=== PATIENT | female | born 1965 | race Caucasian/White ===

== ENCOUNTER 2019-10-15 19:40 | Emergency (ER) | payer BC ==
--- NOTE | 2019-10-15 19:59 | EDM.PDOC ---
ED HPI GENERAL MEDICAL PROBLEM - General Chief Complaint: General Stated Complaint: BLOOD PRESSURE CHECK Time Seen by Provider: 10/15/19 19:59 Source of Information: Reports: Patient History Limitations: Reports: No Limitations - History of Present Illness INITIAL COMMENTS - FREE TEXT/NARRATIVE: HISTORY AND PHYSICAL: History of present illness: Patient is a 54-year-old female presents to the ED with complaint of elevated blood pressure. Patient states she doesn't normally check her blood pressure but she was feeling "funny" so she checked it any it was 220s/120s. She states after checking it 3 times she came to the ED. She states she was feeling anxious after the third check and on the way to the ED she felt dizzy. She denies chest pain, shortness of breath, headache, visual changes, nausea, vomiting, abdominal pain, diarrhea. She states she was recently seen at heme/ onc for elevated hemoglobin and hematocrit. She was advised to stop smoking and was started on a nicotine patch. She states she has been on the nicotine patch for the past 5-6 weeks. She states she is currently on the 14mg patches. Patient is on losartan 50mg daily and did take this prior to taking her blood pressure this afternoon. Review of systems: As per history of present illness and below otherwise all systems reviewed and negative. Past medical history: As per history of present illness and as reviewed below otherwise noncontributory. Surgical history: As per history of present illness and as reviewed below otherwise noncontributory. Social history: No reported history of drug or alcohol abuse. Family history: As per history of present illness and as reviewed below otherwise noncontributory. Physical exam: General: Patient sitting comfortably in no acute distress and nontoxic appearing HEENT: Atraumatic, normocephalic, pupils reactive, negative for conjunctival pallor or scleral icterus, mucous membranes moist, throat clear, neck supple, nontender, trachea midline. No meningeal signs. Lungs: Clear to auscultation, breath sounds equal bilaterally, chest nontender. Heart: S1S2, regular, negative for clicks, rubs, or overt murmur. Abdomen: Soft, nondistended, nontender. Negative for masses or hepatosplenomegaly. Negative for costovertebral tenderness. No rigidity, rebound , guarding. Pelvis: Stable nontender. Genitourinary: Deferred. Rectal: Deferred. Extremities: Atraumatic, negative for cords or calf pain. Neurovascular unremarkable. Neuro: Awake, alert, oriented. Cranial nerves II through XII unremarkable. Cerebellum unremarkable. Motor and sensory unremarkable throughout. Exam nonfocal. Notes: Potassium is minimally low, patient does take oral potassium daily. Blood pressure improved with 20mg labetalol and patient reports improvement in symptoms. Patient offered admission which she declines. Diagnostics: CBC, CMP, troponin, UA, CXR, EKG Therapeutics: 20mg Labetalol Prescriptions: Metoprolol Impression: Hypertension, hypertensive urgency Plan: Take blood pressure medication as instructed Follow up with primary care provider Return to ED as needed as discussed Definitive disposition and diagnosis as appropriate pending reevaluation and review of above. 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 ED EXAM, GENERAL - Physical Exam Exam: See Below (see dictation) Course - Vital Signs Last Recorded V/S: Last Vital Signs Temp 97.7 F 10/15/19 19:50 Pulse 61 10/15/19 20:54 Resp 18 10/15/19 19:50 BP 176/103 H 10/15/19 20:54 Pulse Ox 97 10/15/19 19:50 - Orders/Labs/Meds Orders: Active Orders 24 hr Category Date Time Status Cardiac Monitoring [RC] . DIRECTED Care 10/15/19 20:00 Active EKG Documentation Completion [RC] STAT Care 10/15/19 20:00 Active Sodium Chloride 0.9% [Saline Flush] Med 10/15/19 20:00 Active 10 ml FLUSH ASDIRECTED PRN Sodium Chloride 0.9% [Saline Flush] Med 10/15/19 20:00 Active 2.5 ml FLUSH ASDIRECTED PRN Saline Lock Insert [OM.PC] Stat Oth 10/15/19 20:00 Ordered Medication Orders Sodium Chloride (Saline Flush) 10 ml FLUSH ASDIRECTED PRN PRN Reason: Keep Vein Open Sodium Chloride (Saline Flush) 2.5 ml FLUSH ASDIRECTED PRN PRN Reason: Keep Vein Open Labs: Laboratory Tests 10/15/19 10/15/19 10/15/19 Range/Units 20:00 20:00 20:00 WBC 10.04 (4.0-11.0) K/uL RBC 5.91 H (4.30-5.90) M/uL Hgb 19.4 H (12.0-16.0) g/dL Hct 54.9 H (36.0-46.0) % MCV 92.9 (80.0-98.0) fL MCH 32.8 H (27.0-32.0) pg MCHC 35.3 (31.0-37.0) g/dL RDW Std Deviation 45.0 (28.0-62.0) fl RDW Coeff of Aneudy 13 (11.0-15.0) % Plt Count 229 (150-400) K/uL MPV 10.20 (7.40-12.00) fL Neut % (Auto) 61.7 (48.0-80.0) % Lymph % (Auto) 24.0 (16.0-40.0) % [place] % (Auto) 11.0 (0.0-15.0) % Eos % (Auto) 2.8 (0.0-7.0) % Baso % (Auto) 0.5 (0.0-1.5) % Neut # (Auto) 6.2 H (1.4-5.7) K/uL Lymph # (Auto) 2.4 (0.6-2.4) K/uL [place] # (Auto) 1.1 H (0.0-0.8) K/uL Eos # (Auto) 0.3 (0.0-0.7) K/uL Baso # (Auto) 0.1 (0.0-0.1) K/uL Nucleated RBC % 0.0 /100WBC Nucleated RBCs # 0 K/uL Sodium 141 (136-145) mmol/L Potassium 3.1 L (3.5-5.1) mmol/L Chloride 100 (98-107) mmol/L Carbon Dioxide 24.7 (21.0-32.0) mmol/L BUN 12 (7.0-18.0) mg/dL Creatinine 0.6 (0.6-1.0) mg/dL Est Cr Clr Drug Dosing 91.48 mL/min Estimated GFR (MDRD) > 60.0 ml/min Glucose 94 (74-106) mg/dL Calcium 9.3 (8.5-10.1) mg/dL Total Bilirubin 0.8 (0.2-1.0) mg/dL AST 28 (15-37) IU/L ALT 39 (14-63) IU/L Alkaline Phosphatase 69 (46-116) U/L Total Protein 8.3 H (6.4-8.2) g/dL Albumin 4.8 (3.4-5.0) g/dL Globulin 3.5 (2.6-4.0) g/dL Albumin/Globulin Ratio 1.4 (0.9-1.6) Urine Color YELLOW Urine Appearance CLEAR Urine pH 7.0 (5.0-8.0) Ur Specific [place] 1.010 (1.001-1.035) Urine Protein TRACE H (NEGATIVE) mg/dL Urine Glucose (UA) NEGATIVE (NEGATIVE) mg/dL Urine Ketones NEGATIVE (NEGATIVE) mg/dL Urine Occult Blood SMALL H (NEGATIVE) Urine Nitrite NEGATIVE (NEGATIVE) Urine Bilirubin NEGATIVE (NEGATIVE) Urine Urobilinogen 0.2 (<2.0) EU/dL Ur Leukocyte Esterase NEGATIVE (NEGATIVE) Urine RBC 0-1 (0-2/HPF) Urine WBC 0-1 (0-5/HPF) Ur Epithelial Cells RARE (NONE-FEW) Amorphous Sediment RARE (NEGATIVE) Urine Bacteria RARE (NEGATIVE) Urine Mucus RARE (NONE-MOD) Meds: Medications Generic Name Dose Route Start Last Admin Trade Name Freq PRN Reason Stop Dose Admin Sodium Chloride 10 ml 01/28/20 20:00 Saline Flush FLUSH ASDIRECTED PRN Keep Vein Open Sodium Chloride 2.5 ml 10/15/19 20:00 Saline Flush FLUSH ASDIRECTED PRN Keep Vein Open Discontinued Medications Generic Name Dose Route Start Last Admin Trade Name Vaughn PRN Reason Stop Dose Admin Labetalol HCl 20 mg 10/15/19 20:17 10/15/19 20:30 Normodyne IVPUSH 10/15/19 20:18 20 mg ONETIME ONE Administration Protocol Departure - Departure Time of Disposition: 21:30 Disposition: Home, Self-Care 01 Condition: Good Clinical Impression: Hypertension - Discharge Information Prescriptions: Metoprolol Tartrate 25 mg PO DAILY #10 tablet Referrals: PCP,None [Primary Care Provider] - Forms: ED Department Discharge Additional Instructions: The following information is given to patients seen in the emergency department who are being discharged to home. This information is to outline your options for follow-up care. We provide all patients seen in our emergency department with a follow-up referral. The need for follow-up, as well as the timing and circumstances, are variable depending upon the specifics of your emergency department visit. If you don't have a primary care physician on staff, we will provide you with a referral. We always advise you to contact your personal physician following an emergency department visit to inform them of the circumstance of the visit and for follow-up with them and/or the need for any referrals to a consulting specialist. The emergency department will also refer you to a specialist when appropriate. This referral assures that you have the opportunity for follow-up care with a specialist. All of these measure are taken in an effort to provide you with optimal care, which includes your follow-up. Under all circumstances we always encourage you to contact your private physician who remains a resource for coordinating your care. When calling for follow-up care, please make the office aware that this follow-up is from your recent emergency room visit. If for any reason you are refused follow-up, please contact the [facility] Emergency Department at and asked to speak to the emergency department charge nurse. [facility] [address] [place] [id number] [facility] [address] [place] [address] Take blood pressure medication as instructed Follow up with primary care provider Return to ED as needed as discussed Sepsis Event Note - Evaluation Sepsis Screening Result: No Definite Risk - Focused Exam Vital Signs: Vital Signs Temp Pulse Resp BP Pulse Ox 10/15/19 20:54 61 176/103 H 10/15/19 20:40 64 164/99 H 10/15/19 19:50 97.7 F 88 18 219/126 H 97 Date Exam was Performed: 10/15/19 Time Exam was Performed: 21:29 - My Orders Last 24 Hours: My Active Orders 10/15/19 20:00 Cardiac Monitoring [RC] . DIRECTED EKG Documentation Completion [RC] STAT Sodium Chloride 0.9% [Saline Flush] 10 ml FLUSH ASDIRECTED PRN Sodium Chloride 0.9% [Saline Flush] 2.5 ml FLUSH ASDIRECTED PRN Saline Lock Insert [OM.PC] Stat - Assessment/Plan Last 24 Hours: My Active Orders 10/15/19 20:00 Cardiac Monitoring [RC] . DIRECTED EKG Documentation Completion [RC] STAT Sodium Chloride 0.9% [Saline Flush] 10 ml FLUSH ASDIRECTED PRN Sodium Chloride 0.9% [Saline Flush] 2.5 ml FLUSH ASDIRECTED PRN Saline Lock Insert [OM.PC] Stat
[2019-10-15] MEDS ORDERED: Sodium Chloride 0.9% 2.5 ML Syringe FLUSH PRN (20:00)
[2019-10-15] MEDS ORDERED: Sodium Chloride 0.9% 10 ML Syringe FLUSH PRN (20:00)
[2019-10-15] MEDS ORDERED: Labetalol 100 MG/20 ML MDV IVPUSH ONE (20:17)
[2019-10-15 20:43] LABS: BLOOD UREA NITROGEN,BUN 12 mg/dL (7.0-18.0); CARBON DIOXIDE,CO2 24.7 mmol/L (21.0-32.0); CHLORIDE,CL 100 mmol/L (98-107); GLUCOSE RANDOM 94 mg/dL (74-106); POTASSIUM,K 3.1 mmol/L (3.5-5.1); SODIUM,NA 141 mmol/L (136-145)
--- NOTE | 2019-10-15 21:28 | CR ---
Indication: High blood pressure. Technique: A single AP portable view of the chest. Comparison: None Findings: The heart is normal in size. The lungs are clear. No infiltrate, pleural effusion, or pneumothorax is identified. Impression: No acute cardiopulmonary process Dictated by Isabel Nunes MD @ Oct 15 2019 9:18PM Signed by Dr. Isabel Nunes @ Oct 15 2019 9:25PM
[2019-10-16 03:31] VITALS: BP 171/105; PULSE 68
== END 2019-10-15 21:40 | disposition home or self-care (01) ==
LOC: MW.ED 19:40
DX: I10 Essential (primary) hypertension (principal); E78.00 Pure hypercholesterolemia, unspecified; Z79.899 Other long term (current) drug therapy
CPT/HCPCS: 71045; 71045-26; 80053; 81001; 85025; 93005; 96374; 99283; 99284-25

== ENCOUNTER 2019-10-17 16:40 | Emergency (ER) | payer BC ==
[2019-10-17] MEDS ORDERED: cloNIDine 0.1 MG Tab PO ONE (16:59)
--- NOTE | 2019-10-17 17:09 | EDM.PDOC ---
ED HPI GENERAL MEDICAL PROBLEM - General Chief Complaint: General Stated Complaint: high blood pressure Time Seen by Provider: 10/17/19 16:51 Source of Information: Reports: Patient History Limitations: Reports: No Limitations - History of Present Illness INITIAL COMMENTS - FREE TEXT/NARRATIVE: HISTORY AND PHYSICAL: History of present illness: Patient is a 54-year-old female who presents to the emergency room with concerns of elevated blood pressure. Patient was seen in our ER on 10/15/2019 with concerns of elevated blood pressure, stating she had been checking her blood pressure routinely and having readings of 200s/100s over the past 2 days. During her ER visit she had basic labs done which were well enough for her to be discharged and she wasn't given script for Metoprolol. She has been taking losartan and Nicotine Patches (recommended by Brittany - seeing her for elevated Hgb/Hct count). Patient didn't fill her prescription; stating she called Dr Hendrickson, who didn't want her to take/fill the Metoprolol, but rather encouraged her to stop the Nicotine Patches (last patch was 10/15) . She noticed her blood pressure still is elevated and she still feels "strange". Patient denies any fever, chills, headache, change in vision, syncope or near syncope. Denies any chest pain, back pain, shortness of breath or cough. Denies any abdominal pain, nausea, vomiting, diarrhea, constipation or dysuria. Has not noted any blood in urine or stool. Patient has been eating and drinking appropriately. Review of systems: As per history of present illness and below otherwise all systems reviewed and negative. Past medical history: As per history of present illness and as reviewed below otherwise noncontributory. Surgical history: As per history of present illness and as reviewed below otherwise noncontributory. Social history: See social history for further information Family history: As per history of present illness and as reviewed below otherwise noncontributory. Physical exam: General: Well-developed and well-nourished 54-year-old female. Alert and oriented. Nontoxic-appearing and in no acute distress. HEENT: Atraumatic, normocephalic, pupils equal and reactive bilaterally, negative for conjunctival pallor or scleral icterus, mucous membranes moist, TMs normal bilaterally, throat clear, neck supple, nontender, trachea midline. No drooling or trismus noted. No meningeal signs. No hot potato voice noted. Lungs: Clear to auscultation, breath sounds equal bilaterally, chest nontender. Heart: S1S2, regular rate and rhythm without overt murmur Abdomen: Soft, nondistended, nontender. Negative for masses or hepatosplenomegaly. Negative for costovertebral tenderness. Pelvis: Stable nontender. Skin: Intact, warm, dry. No lesions or rashes noted. Extremities: Atraumatic, moves all extremities per self without difficulty or deficits, negative for cords or calf pain. Neurovascular unremarkable. Neuro: Awake, alert, oriented. Cranial nerves II through XII unremarkable. Cerebellum unremarkable. Motor and sensory unremarkable throughout. Exam nonfocal. Notes: EKG shows normal sinus rhythm; no acute findings. Reviewed by myself and Nisa. Patient states she doesn't want to add any medication until she can talk with Dr Hendrickson, her PCP, as he is already aware of her elevated BP readings. Believes it may be related to her Nicotine patch, as this was just started in the last 2 weeks. We discuss possible risks of untreated HTN, she voices understanding. She will call Madhavi in the morning. Supportive care measures were reviewed and discussed. Voices understanding and is agreeable to plan of care. Denies any further questions or concerns at this time. Diagnostics: EKG Therapeutics: Clonidine Prescription: None Impression: Medication Noncompliance Unmanaged HTN Plan: 1. You need to call Dr Hendrickson tomorrow and be re-evaluated/management REMA- call first thing in the morning to be seen. 2. Return to the ED as needed as discussed. Definitive disposition and diagnosis as appropriate pending reevaluation and review of above. - Related Data Allergies Allergy/AdvReac Type Severity Reaction Status Date / Time No Known Allergies Allergy Verified 10/17/19 16:52 Home Meds: Home Meds Potassium Chloride 20 meq PO DAILY 06/27/17 [History] atorvaSTATin Calcium [Atorvastatin Calcium] 20 mg PO DAILY 06/27/17 [History] Losartan [Cozaar] 50 mg PO BEDTIME 10/15/19 [History] Past Medical History HEENT History: Reports: Other (See Below) Other HEENT History: wears glasses Cardiovascular History: Reports: High Cholesterol, Hypertension Genitourinary History: Reports: None [employer] History: Reports: 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 History: Reports: None - Infectious Disease History Infectious Disease History: Reports: Chicken Pox, Measles - Past Surgical History Head Surgeries/Procedures: Reports: None Female Surgical History: Reports: Breast Biopsy, Section 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 Surgical History: Reports: Carpal Tunnel Social & Family History - Family History Family Medical History: Noncontributory - Tobacco Use Smoking Status *Q: Former Smoker Used Tobacco, but Quit: Yes Month/Year Tobacco Last Used: 10/07 - Caffeine Use Caffeine Use: Reports: None ED ROS GENERAL - Review of Systems Review Of Systems: Comprehensive ROS is negative, except as noted in HPI. ED EXAM, GENERAL - Physical Exam Exam: See Below (See dictation) Course - Vital Signs Last Recorded V/S: Last Vital Signs Temp 97.2 F 10/17/19 16:49 Pulse 60 10/17/19 16:49 Resp 16 10/17/19 16:49 BP 188/107 H 10/17/19 17:09 Pulse Ox 96 10/17/19 16:49 - Orders/Labs/Meds Orders: Active Orders 24 hr Category Date Time Status EKG Documentation Completion [RC] STAT Care 10/17/19 16:59 Active Meds: Medications Discontinued Medications Generic Name Dose Route Start Last Admin Trade Name Freq PRN Reason Stop Dose Admin Clonidine HCl 0.1 mg 10/17/19 16:59 10/17/19 17:09 Catapres PO 10/17/19 17:00 0.1 mg ONETIME ONE Administration Departure - Departure Time of Disposition: 17:44 Disposition: Home, Self-Care 01 Clinical Impression: Noncompliance with medication regimen Hypertension Qualifiers: Hypertension type: unspecified Qualified Code(s): I10 - Essential (primary) hypertension - Discharge Information Instructions: Managing Your Hypertension Referrals: Dez Zaldivar MD [Primary Care Provider] - Forms: ED Department Discharge Additional Instructions: The following information is given to patients seen in the emergency department who are being discharged to home. This information is to outline your options for follow-up care. We provide all patients seen in our emergency department with a follow-up referral. The need for follow-up, as well as the timing and circumstances, are variable depending upon the specifics of your emergency department visit. If you don't have a primary care physician on staff, we will provide you with a referral. We always advise you to contact your personal physician following an emergency department visit to inform them of the circumstance of the visit and for follow-up with them and/or the need for any referrals to a consulting specialist. The emergency department will also refer you to a specialist when appropriate. This referral assures that you have the opportunity for follow-up care with a specialist. All of these measure are taken in an effort to provide you with optimal care, which includes your follow-up. Under all circumstances we always encourage you to contact your private physician who remains a resource for coordinating your care. When calling for follow-up care, please make the office aware that this follow-up is from your recent emergency room visit. If for any reason you are refused follow-up, please contact the [facility] Emergency Department at and asked to speak to the emergency department charge nurse. [facility] [address] [place] [address] [place] [address] 1. You need to call Dr Hendrickson tomorrow and be re-evaluated/management REMA- call first thing in the morning to be seen. 2. Return to the ED as needed as discussed. Sepsis Event Note - Evaluation Sepsis Screening Result: No Definite Risk - Focused Exam Vital Signs: Vital Signs Temp Pulse Resp BP BP Pulse Ox 10/17/19 17:09 188/107 H 10/17/19 16:49 97.2 F 60 16 219/113 H 96 Date Exam was Performed: 10/17/19 Time Exam was Performed: 17:42 - My Orders Last 24 Hours: My Active Orders 10/17/19 16:59 EKG Documentation Completion [RC] STAT - Assessment/Plan Last 24 Hours: My Active Orders 10/17/19 16:59 EKG Documentation Completion [RC] STAT
[2019-10-17 17:45] VITALS: BP 180/105; PULSE 54
== END 2019-10-17 17:58 | disposition home or self-care (01) ==
LOC: MW.ED 16:40
DX: I10 Essential (primary) hypertension (principal); Z91.14 Patient's other noncompliance with medication regimen; E78.00 Pure hypercholesterolemia, unspecified; Z79.899 Other long term (current) drug therapy; Z87.891 Personal history of nicotine dependence
CPT/HCPCS: 93005; 99283; A9270

== ENCOUNTER 2019-11-03 12:59 | Observation (INO) | payer BC ==
--- NOTE | 2019-11-03 14:44 | EDM.PDOC ---
ED HPI GENERAL MEDICAL PROBLEM - General Chief Complaint: Cardiovascular Problem Stated Complaint: HIGH BP Time Seen by Provider: 11/03/19 14:20 Source of Information: Reports: Patient - History of Present Illness INITIAL COMMENTS - FREE TEXT/NARRATIVE: Patient presents complaining of hypertension. She says she was diagnosed with high blood pressure 3 years ago. Currently she says she takes losartan 50 mg once a day at bedtime and metoprolol 50 mg once a day at bedtime. Compliant with her medications. States that she has been difficult to control. She states that her primary care doctor added the metoprolol on 10/20/2019, and increase the dose a few days later, but her pressure readings are still in the 200s. Mention to the nurse that she had a headache, but when I asked her about it, she said it was "2 out of 10 and really not that bad close quotes. I offered her Tylenol and she said she did not want anything for the headache. She said she is more anxious than in pain, and she says she is feeling anxiety because she is taking her medicine and does not understand why her pressure will not go down. She denies a history of thyroid disease and denies heat or cold intolerance. No recent weight changes. She denies speech slurring, visual changes, chest pain, shortness of breath, or other symptoms. 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: 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 History: Reports: None - Infectious Disease History Infectious Disease History: Reports: Measles - Past Surgical History Head Surgeries/Procedures: Reports: None Female Surgical History: Reports: Breast Biopsy, Section 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 Surgical History: Reports: Carpal Tunnel Social & Family History - Family History Family Medical History: Noncontributory - Tobacco Use Smoking Status *Q: Former Smoker Used Tobacco, but Quit: Yes Month/Year Tobacco Last Used: 2019 - Caffeine Use Caffeine Use: Reports: None - Recreational Drug Use Recreational Drug Use: No ED ROS GENERAL - Review of Systems Review Of Systems: See Below Constitutional: Denies: Fever, Weakness, Fatigue HEENT: Denies: Eye Pain Respiratory: Denies: Shortness of Breath, Cough Cardiovascular: Denies: Chest Pain, Palpitations GI/Abdominal: Denies: Abdominal Pain Neurological: Reports: Headache. Denies: Confusion, Dizziness, Numbness, Seizure, Tingling, Trouble Speaking, Change in Speech ED EXAM, GENERAL - Physical Exam Exam: See Below Free Text/Narrative:: General: alert, well appearing, no acute distress HEENT: Atraumatic, normocephalic, pupils reactive, negative for conjunctival pallor or scleral icterus, mucous membranes moist, throat clear, handling oral secretions well. Neck: supple, nontender, trachea midline. Lungs: Clear to auscultation, breath sounds equal bilaterally, chest nontender. Heart: S1S2, regular, negative for clicks, rubs, or JVD. Abdomen: Soft, nondistended, nontender. Negative for masses or hepatosplenomegaly. Skin: warm, dry, good turgor. 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: soft compartments. Extremities: Atraumatic, negative for cords or calf pain. Neurovascular unremarkable. Neuro: Awake, alert, oriented. Cranial nerves II through XII unremarkable. Cerebellum unremarkable. Motor and sensory unremarkable throughout. Exam nonfocal. Course - Vital Signs Text/Narrative:: Head CT: No bleed, mass, shift EK bpm normal sinus rhythm LAD normal CO, QRS, QT intervals; no acute ST changes CBC: Hemoconcentration; otherwise unremarkable CMP: BUN and creatinine are normal; studies unremarkable Troponin: Negative 4:39pm patient's systolic pressure is responded to the nicardipine drip, ranging from about 170-190. However, her diastolic pressure seems to hover in 120. I really do not feel comfortable sending her out with that high with diastolic pressure. Her only symptom thus far is been a mild headache, but I would be concerned about her possibly worsening. She may need a third agent. Anyway, she is not well controlled with the two bp agents she is taking, and the nicardipine drip has helped some, but not quite enough. I discussed the case with the hospitalist, Dr. Menendez, who is agreed to admit her to observation status to continue lowering her pressure. Patient has been informed and is amenable to an overnight admission. Last Recorded V/S: Last Vital Signs Temp 97.7 F 11/03/19 13:50 Pulse 96 11/03/19 17:48 Resp 18 11/03/19 17:48 BP 175/100 H 11/03/19 17:48 Pulse Ox 97 11/03/19 17:48 - Orders/Labs/Meds Orders: Medication Orders Acetaminophen (Tylenol) 650 mg PO Q4H PRN PRN Reason: Pain (Mild 1-3)/fever Enoxaparin Sodium (Lovenox) 40 mg SUBCUT Q24H LENKA Last Admin: 11/03/19 17:42 Dose: 40 mg Sodium Chloride (Normal Saline) 1,000 mls @ 150 mls/hr IV ASDIRECTED LENKA Stop: 11/03/19 23:54 Ibuprofen (Motrin) 800 mg PO Q6H PRN PRN Reason: Pain (mild 1-3) Labetalol HCl (Normodyne) 10 mg IVPUSH Q4H PRN PRN Reason: Hypertension Lorazepam (Ativan) 0 mg IVPUSH Q4H PRN; Protocol PRN Reason: Withdrawal Symptoms Losartan Potassium (Cozaar) 50 mg PO BEDTIME LENKA Multivit/Ca Carb/B Cmplx/FA/Prenat (Renal Caps Softgel) 1 cap PO DAILY LENKA Ondansetron HCl (Zofran Odt) 4 mg PO Q4H PRN PRN Reason: nausea, able to take PO Ondansetron HCl (Zofran) 4 mg IVPUSH Q4H PRN PRN Reason: Nausea Labs: Laboratory Tests 11/03/19 11/03/19 11/03/19 Range/Units 13:57 13:57 13:57 WBC 8.59 (4.0-11.0) K/uL RBC 5.75 (4.30-5.90) M/uL Hgb 18.8 H (12.0-16.0) g/dL Hct 52.6 H (36.0-46.0) % MCV 91.5 (80.0-98.0) fL MCH 32.7 H (27.0-32.0) pg MCHC 35.7 (31.0-37.0) g/dL RDW Std Deviation 43.4 (28.0-62.0) fl RDW Coeff of Aneudy 13 (11.0-15.0) % Plt Count 257 (150-400) K/uL MPV 10.90 (7.40-12.00) fL Neut % (Auto) 64.2 (48.0-80.0) % Lymph % (Auto) 22.2 (16.0-40.0) % [place] % (Auto) 11.1 (0.0-15.0) % Eos % (Auto) 2.0 (0.0-7.0) % Baso % (Auto) 0.5 (0.0-1.5) % Neut # (Auto) 5.5 (1.4-5.7) K/uL Lymph # (Auto) 1.9 (0.6-2.4) K/uL [place] # (Auto) 1.0 H (0.0-0.8) K/uL Eos # (Auto) 0.2 (0.0-0.7) K/uL Baso # (Auto) 0.0 (0.0-0.1) K/uL Nucleated RBC % 0.0 /100WBC Nucleated RBCs # 0 K/uL Sodium 142 (136-145) mmol/L Potassium 3.4 L (3.5-5.1) mmol/L Chloride 105 (98-107) mmol/L Carbon Dioxide 26.2 (21.0-32.0) mmol/L BUN 17 (7.0-18.0) mg/dL Creatinine 0.7 (0.6-1.0) mg/dL Est Cr Clr Drug Dosing 81.71 mL/min Estimated GFR (MDRD) > 60.0 ml/min Glucose 102 (74-106) mg/dL Calcium 9.2 (8.5-10.1) mg/dL Magnesium (1.8-2.4) mg/dL Total Bilirubin 0.5 (0.2-1.0) mg/dL AST 22 (15-37) IU/L ALT 28 (14-63) IU/L Alkaline Phosphatase 67 (46-116) U/L Troponin I < 0.050 (0.000-0.056) ng/mL B-Natriuretic Peptide 149 H (<100) PG/ML Total Protein 7.7 (6.4-8.2) g/dL Albumin 4.3 (3.4-5.0) g/dL Globulin 3.4 (2.6-4.0) g/dL Albumin/Globulin Ratio 1.3 (0.9-1.6) Ethyl Alcohol mg/dL 11/03/19 11/03/19 Range/Units 13:57 13:57 WBC (4.0-11.0) K/uL RBC (4.30-5.90) M/uL Hgb (12.0-16.0) g/dL Hct (36.0-46.0) % MCV (80.0-98.0) fL MCH (27.0-32.0) pg MCHC (31.0-37.0) g/dL RDW Std Deviation (28.0-62.0) fl RDW Coeff of Aneudy (11.0-15.0) % Plt Count (150-400) K/uL MPV (7.40-12.00) fL Neut % (Auto) (48.0-80.0) % Lymph % (Auto) (16.0-40.0) % [place] % (Auto) (0.0-15.0) % Eos % (Auto) (0.0-7.0) % Baso % (Auto) (0.0-1.5) % Neut # (Auto) (1.4-5.7) K/uL Lymph # (Auto) (0.6-2.4) K/uL [place] # (Auto) (0.0-0.8) K/uL Eos # (Auto) (0.0-0.7) K/uL Baso # (Auto) (0.0-0.1) K/uL Nucleated RBC % /100WBC Nucleated RBCs # K/uL Sodium (136-145) mmol/L Potassium (3.5-5.1) mmol/L Chloride (98-107) mmol/L Carbon Dioxide (21.0-32.0) mmol/L BUN (7.0-18.0) mg/dL Creatinine (0.6-1.0) mg/dL Est Cr Clr Drug Dosing mL/min Estimated GFR (MDRD) ml/min Glucose (74-106) mg/dL Calcium (8.5-10.1) mg/dL Magnesium 1.8 (1.8-2.4) mg/dL Total Bilirubin (0.2-1.0) mg/dL AST (15-37) IU/L ALT (14-63) IU/L Alkaline Phosphatase (46-116) U/L Troponin I (0.000-0.056) ng/mL B-Natriuretic Peptide (<100) PG/ML Total Protein (6.4-8.2) g/dL Albumin (3.4-5.0) g/dL Globulin (2.6-4.0) g/dL Albumin/Globulin Ratio (0.9-1.6) Ethyl Alcohol <3 mg/dL Meds: Medications Generic Name Dose Route Start Last Admin Trade Name Freq PRN Reason Stop Dose Admin Acetaminophen 650 mg 11/03/19 17:08 Tylenol PO Q4H PRN Pain (Mild 1-3)/fever Enoxaparin Sodium 40 mg 11/03/19 17:15 11/03/19 17:42 Lovenox SUBCUT 40 mg Q24H LENKA Administration Sodium Chloride 1,000 mls @ 150 mls/hr 11/03/19 17:15 Normal Saline IV 11/03/19 23:54 ASDIRECTED [facility] Ibuprofen 800 mg 11/03/19 17:08 Motrin PO Q6H PRN Pain (mild 1-3) Labetalol HCl 10 mg 11/03/19 17:34 Normodyne IVPUSH Q4H PRN Hypertension Lorazepam 0 mg 11/03/19 17:11 Ativan IVPUSH Q4H PRN Withdrawal Symptoms Protocol Losartan Potassium 50 mg 11/03/19 21:00 Cozaar PO BEDTIME [facility] Multivit/Ca Carb/B Cmplx/FA/Prenat 1 cap 11/03/19 17:15 Renal Caps Softgel PO DAILY [facility] Ondansetron HCl 4 mg 11/03/19 17:08 Zofran Odt PO Q4H PRN nausea, able to take PO Ondansetron HCl 4 mg 11/03/19 17:08 Zofran IVPUSH Q4H PRN Nausea Discontinued Medications Generic Name Dose Route Start Last Admin Trade Name Freq PRN Reason Stop Dose Admin Acetaminophen 500 mg 11/03/19 15:12 11/03/19 15:30 Tylenol Extra Strength PO 11/03/19 15:13 Not Given ONETIME ONE Nicardipine HCl 20 mg in 200 mls @ 20 mls/hr 11/03/19 14:45 11/03/19 16:00 Cardene 20 Mg In Ns 200 Ml IV 4.5 mg/hr TITRATE LENKA 45 mls/hr Titration Protocol 2 MG/HR Lorazepam 1 mg 11/03/19 17:10 11/03/19 17:42 Ativan IVPUSH 11/03/19 17:11 1 mg ONETIME ONE Administration Metoprolol Tartrate 50 mg 11/03/19 17:33 Lopressor PO 11/03/19 17:34 NOW STA Potassium Chloride 40 meq 11/03/19 17:16 11/03/19 17:42 Klor-Con M20 PO 11/03/19 17:17 40 meq ONETIME ONE Administration Departure - Departure Time of Disposition: 16:43 Disposition: Refer to Observation Condition: Good Clinical Impression: Hypertension Qualifiers: Hypertension type: unspecified Qualified Code(s): I10 - Essential (primary) hypertension Sepsis Event Note - Evaluation Sepsis Screening Result: No Definite Risk - Focused Exam Vital Signs: Vital Signs Temp Pulse Resp BP Pulse Ox 11/03/19 13:50 97.7 F 62 17 210/115 H 95 Date Exam was Performed: 11/03/19 Time Exam was Performed: 17:49
[2019-11-03 14:45] LABS: BLOOD UREA NITROGEN,BUN 17 mg/dL (7.0-18.0); CARBON DIOXIDE,CO2 26.2 mmol/L (21.0-32.0); CHLORIDE,CL 105 mmol/L (98-107); GLUCOSE RANDOM 102 mg/dL (74-106); POTASSIUM,K 3.4 mmol/L (3.5-5.1); SODIUM,NA 142 mmol/L (136-145)
[2019-11-03] MEDS ORDERED: niCARdipine/Normal Saline 20 MG/200 ML BAG IV SCH (14:45)
[2019-11-03] MEDS ORDERED: Acetaminophen 500 MG Tab PO ONE (15:12)
--- NOTE | 2019-11-03 15:15 | CR ---
Chest: Portable view of the chest was obtained. Comparison: Prior chest x-ray of 10/15/19. Heart size and mediastinum are within normal limits for portable technique. Lungs are clear with no acute parenchymal change. Bony structures are grossly intact. Impression: 1. Nothing acute is appreciated on portable chest x-ray. Diagnostic code #1 This report was dictated in [place] Standard Time
--- NOTE | 2019-11-03 15:44 | CT ---
Head CT Technique: Multiple axial sections through the brain were obtained. Intravenous contrast was not utilized. Comparison: No prior intracranial imaging is available. Findings: Ventricles along with basal cisterns and sulci over the convexities are within normal limits for the patient's age. No abnormal parenchymal densities are seen. No evidence of intracranial hemorrhage. No midline shift or mass-effect is seen. Visualized paranasal sinuses show nothing acute. Mastoid sinuses also show nothing acute. No acute calvarial abnormality is identified. Impression: 1. Nothing acute is appreciated on noncontrast head CT exam. Diagnostic code #1
[2019-11-03] MEDS ORDERED: Acetaminophen 325 MG Tab PO PRN (17:08)
[2019-11-03] MEDS ORDERED: Ibuprofen 800 MG Tab PO PRN (17:08)
[2019-11-03] MEDS ORDERED: Ondansetron 4 MG Tab.DIS PO PRN (17:08)
[2019-11-03] MEDS ORDERED: Ondansetron 4 MG/2 ML SDV IVPUSH PRN (17:08)
[2019-11-03] MEDS ORDERED: LORazepam 2 MG/ML SDV IVPUSH ONE (17:10)
[2019-11-03] MEDS ORDERED: LORazepam 2 MG/ML SDV IVPUSH PRN (17:11)
[2019-11-03] MEDS ORDERED: Sodium Chloride 0.9% 1,000 ML IV SCH (17:15)
[2019-11-03] MEDS ORDERED: Potassium Chloride 20 MEQ Tab.ER PO ONE (17:16)
[2019-11-03] MEDS ORDERED: Metoprolol Tartrate 50 MG Tab PO STA (17:33)
[2019-11-03] MEDS ORDERED: Labetalol 100 MG/20 ML MDV IVPUSH PRN (17:34)
--- NOTE | 2019-11-03 17:38 | PCM.HP.2 ---
H&P History of Present Illness - General Date of Service: 11/03/19 Admit Problem/Dx: Admission Diagnosis/Problem Admission Diagnosis/Problem Hypertension - History of Present Illness Initial Comments - Free Text/Narative: 54 y/o female with history of alcohol abuse and hypertension who presented to the ER after she felt some palpitations while she was at the grocery store. States that she has been taking losartan and metoprolol. Has been checking her BP at home and it has been ranging in the 170's/90's. Denies any headaches, change in vision, vomiting, chest pain, dyspnea, abdominal pain, dysuria, diarrhea. She does endorse mild swelling in her lower extremities. Denies any family history of heart disease. She quit smoking about 3 months ago. States that she noticed her BP go up after quitting smoking. Denies any illicit drug use. She does endorse daily drinking about 3-4 drinks of hard liquor. Denies any history of withdrawal seizures. - Related Data Allergies/Adverse Reactions: Allergies Allergy/AdvReac Type Severity Reaction Status Date / Time No Known Allergies Allergy Verified 11/03/19 17:38 Home Medications: Home Meds Potassium Chloride 20 meq PO BEDTIME 06/27/17 [History] atorvaSTATin Calcium [Atorvastatin Calcium] 20 mg PO BEDTIME 06/27/17 [History] Losartan [Cozaar] 50 mg PO BEDTIME 10/15/19 [History] Metoprolol Tartrate 50 mg PO BEDTIME 11/03/19 [History] Past Medical History HEENT History: Reports: Other (See Below) Other HEENT History: wears glasses Cardiovascular History: Reports: High Cholesterol, Hypertension Genitourinary History: Reports: None 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: 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 History: Reports: None - Infectious Disease History Infectious Disease History: Reports: Measles - Past Surgical History Head Surgeries/Procedures: Reports: None Female Surgical History: Reports: Breast Biopsy, Section 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 Surgical History: Reports: Carpal Tunnel Social & Family History - Family History Family Medical History: Noncontributory - Tobacco Use Smoking Status *Q: Former Smoker Used Tobacco, but Quit: Yes Month/Year Tobacco Last Used: 08/2019 - Caffeine Use Caffeine Use: Reports: Coffee - Recreational Drug Use Recreational Drug Use: No H&P Review of Systems - Review of Systems: Review Of Systems: Comprehensive ROS is negative, except as noted in HPI. Exam - Exam Exam: See Below - Vital Signs Vital Signs: Last Vital Signs Temp 36.5 C 11/03/19 13:50 Pulse 102 H 11/03/19 17:06 Resp 16 11/03/19 17:06 BP 169/112 H 11/03/19 17:06 Pulse Ox 100 11/03/19 17:06 Weight: 66.134 kg - Exam General: Alert, Oriented, Cooperative HEENT: Pupils Equal, Pupils Reactive Lungs: Clear to Auscultation, Normal Respiratory Effort. No: Crackles, Wheezing Cardiovascular: Regular Rhythm, Tachycardia GI/Abdominal Exam: Normal Bowel Sounds, Soft, Non-Tender, No Distention Extremities: Normal Inspection, Other (mild edema in feet) Skin: Warm, Moist Neurological: Cranial Nerves Intact Neuro Extensive - Mental Status: Alert, Oriented x3 - Patient Data Lab Results Last 24 hrs: Laboratory Results - last 24 hr 11/03/19 11/03/19 11/03/19 Range/Units 13:57 13:57 13:57 WBC 8.59 (4.0-11.0) K/uL RBC 5.75 (4.30-5.90) M/uL Hgb 18.8 H (12.0-16.0) g/dL Hct 52.6 H (36.0-46.0) % MCV 91.5 (80.0-98.0) fL MCH 32.7 H (27.0-32.0) pg MCHC 35.7 (31.0-37.0) g/dL RDW Std Deviation 43.4 (28.0-62.0) fl RDW Coeff of Aneudy 13 (11.0-15.0) % Plt Count 257 (150-400) K/uL MPV 10.90 (7.40-12.00) fL Neut % (Auto) 64.2 (48.0-80.0) % Lymph % (Auto) 22.2 (16.0-40.0) % [place] % (Auto) 11.1 (0.0-15.0) % Eos % (Auto) 2.0 (0.0-7.0) % Baso % (Auto) 0.5 (0.0-1.5) % Neut # (Auto) 5.5 (1.4-5.7) K/uL Lymph # (Auto) 1.9 (0.6-2.4) K/uL [place] # (Auto) 1.0 H (0.0-0.8) K/uL Eos # (Auto) 0.2 (0.0-0.7) K/uL Baso # (Auto) 0.0 (0.0-0.1) K/uL Nucleated RBC % 0.0 /100WBC Nucleated RBCs # 0 K/uL Sodium 142 (136-145) mmol/L Potassium 3.4 L (3.5-5.1) mmol/L Chloride 105 (98-107) mmol/L Carbon Dioxide 26.2 (21.0-32.0) mmol/L BUN 17 (7.0-18.0) mg/dL Creatinine 0.7 (0.6-1.0) mg/dL Est Cr Clr Drug Dosing 81.71 mL/min Estimated GFR (MDRD) > 60.0 ml/min Glucose 102 (74-106) mg/dL Calcium 9.2 (8.5-10.1) mg/dL Magnesium (1.8-2.4) mg/dL Total Bilirubin 0.5 (0.2-1.0) mg/dL AST 22 (15-37) IU/L ALT 28 (14-63) IU/L Alkaline Phosphatase 67 (46-116) U/L Troponin I < 0.050 (0.000-0.056) ng/mL B-Natriuretic Peptide 149 H (<100) PG/ML Total Protein 7.7 (6.4-8.2) g/dL Albumin 4.3 (3.4-5.0) g/dL Globulin 3.4 (2.6-4.0) g/dL Albumin/Globulin Ratio 1.3 (0.9-1.6) Ethyl Alcohol mg/dL 11/03/19 11/03/19 Range/Units 13:57 13:57 WBC (4.0-11.0) K/uL RBC (4.30-5.90) M/uL Hgb (12.0-16.0) g/dL Hct (36.0-46.0) % MCV (80.0-98.0) fL MCH (27.0-32.0) pg MCHC (31.0-37.0) g/dL RDW Std Deviation (28.0-62.0) fl RDW Coeff of Aneudy (11.0-15.0) % Plt Count (150-400) K/uL MPV (7.40-12.00) fL Neut % (Auto) (48.0-80.0) % Lymph % (Auto) (16.0-40.0) % [place] % (Auto) (0.0-15.0) % Eos % (Auto) (0.0-7.0) % Baso % (Auto) (0.0-1.5) % Neut # (Auto) (1.4-5.7) K/uL Lymph # (Auto) (0.6-2.4) K/uL [place] # (Auto) (0.0-0.8) K/uL Eos # (Auto) (0.0-0.7) K/uL Baso # (Auto) (0.0-0.1) K/uL Nucleated RBC % /100WBC Nucleated RBCs # K/uL Sodium (136-145) mmol/L Potassium (3.5-5.1) mmol/L Chloride (98-107) mmol/L Carbon Dioxide (21.0-32.0) mmol/L BUN (7.0-18.0) mg/dL Creatinine (0.6-1.0) mg/dL Est Cr Clr Drug Dosing mL/min Estimated GFR (MDRD) ml/min Glucose (74-106) mg/dL Calcium (8.5-10.1) mg/dL Magnesium 1.8 (1.8-2.4) mg/dL Total Bilirubin (0.2-1.0) mg/dL AST (15-37) IU/L ALT (14-63) IU/L Alkaline Phosphatase (46-116) U/L Troponin I (0.000-0.056) ng/mL B-Natriuretic Peptide (<100) PG/ML Total Protein (6.4-8.2) g/dL Albumin (3.4-5.0) g/dL Globulin (2.6-4.0) g/dL Albumin/Globulin Ratio (0.9-1.6) Ethyl Alcohol <3 mg/dL Result Diagrams: 11/03/19 13:57 11/03/19 13:57 Sepsis Event Note - Evaluation Sepsis Screening Result: No Definite Risk - Focused Exam Vital Signs: Vital Signs Temp Pulse Resp BP Pulse Ox 11/03/19 17:06 102 H 16 169/112 H 100 11/03/19 13:50 36.5 C 62 17 210/115 H 95 Date Exam was Performed: 11/03/19 Time Exam was Performed: 18:29 Problem List Initiated/Reviewed/Updated: Yes Orders Last 24hrs: Active Orders 24 hr Category Date Time Status Admission Status [Patient Status] [ADT] Stat ADT 11/03/19 16:44 Active CIWAA Assessment [RC] Q4H Care 11/03/19 17:15 Active Intake and Output [RC] Q12H Care 11/03/19 17:08 Active Oxygen Therapy [RC] PRN Care 11/03/19 17:08 Active Telemetry Monitoring [Cardiac Monitoring] [RC] . Care 11/03/19 17:17 Active DIRECTED Up ad Kellee [RC] ASDIRECTED Care 11/03/19 17:08 Active VTE/DVT Education [RC] PER UNIT ROUTINE Care 11/03/19 17:08 Active Vital Signs [RC] Q4H Care 11/03/19 17:08 Active Regular Diet [DIET] Diet 11/03/19 Dinner Active Echo Comp wo Cont [US] Routine Exams 11/04/19 08:00 Ordered DRUG SCREEN, URINE [URCHEM] Routine Lab 11/03/19 17:29 Ordered UA RFX SERAFIN AND CULT IF INDIC [URIN] Routine Lab 11/03/19 17:29 Ordered Acetaminophen [Tylenol] Med 11/03/19 17:08 Active 650 mg PO Q4H PRN Enoxaparin [Lovenox] Med 11/03/19 17:15 Active 40 mg SUBCUT Q24H Folic Acid/Vitamin B Comp W-C [Renal Caps Softgel] Med 11/03/19 17:15 Active 1 cap PO DAILY Ibuprofen [Motrin] Med 11/03/19 17:08 Active 800 mg PO Q6H PRN LORazepam [Ativan] Med 11/03/19 17:11 Active See Protocol IVPUSH Q4H PRN Labetalol [Normodyne] Med 11/03/19 17:34 Active 10 mg IVPUSH Q4H PRN Losartan [Cozaar] Med 11/03/19 21:00 Active 50 mg PO BEDTIME Ondansetron [Zofran ODT] Med 11/03/19 17:08 Active 4 mg PO Q4H PRN Ondansetron [Zofran] Med 11/03/19 17:08 Active 4 mg IVPUSH Q4H PRN Sodium Chloride 0.9% [Normal Saline] 1,000 ml Med 11/03/19 17:15 Active IV ASDIRECTED Resuscitation Status Routine Resus Stat 11/03/19 17:08 Ordered Medication Orders Acetaminophen (Tylenol) 650 mg PO Q4H PRN PRN Reason: Pain (Mild 1-3)/fever Enoxaparin Sodium (Lovenox) 40 mg SUBCUT Q24H LENKA Sodium Chloride (Normal Saline) 1,000 mls @ 150 mls/hr IV ASDIRECTED LENKA Stop: 11/03/19 23:54 Ibuprofen (Motrin) 800 mg PO Q6H PRN PRN Reason: Pain (mild 1-3) Labetalol HCl (Normodyne) 10 mg IVPUSH Q4H PRN PRN Reason: Hypertension Lorazepam (Ativan) 0 mg IVPUSH Q4H PRN; Protocol PRN Reason: Withdrawal Symptoms Losartan Potassium (Cozaar) 50 mg PO BEDTIME LENKA Multivit/Ca Carb/B Cmplx/FA/Prenat (Renal Caps Softgel) 1 cap PO DAILY LENKA Ondansetron HCl (Zofran Odt) 4 mg PO Q4H PRN PRN Reason: nausea, able to take PO Ondansetron HCl (Zofran) 4 mg IVPUSH Q4H PRN PRN Reason: Nausea Assessment/Plan Comment:: A: 1. Hypertensive urgency 2. Alcohol withdrawal P: 1. Labetalol 10 mg IV q4H PRN for SBP>180 or DBP>110. Will resume home medications. Telemetry. CIWA assessment and Ativan PRN for alcohol withdrawal. Thiamin and folic acid daily. Will give 1 L NS since hemoconcentrated. Dispo: 1-2 days
[2019-11-03] MEDS: Enoxaparin 40 MG/0.4 ML Syringe SUBCUT SCH (17:42)
[2019-11-03] MEDS: Folic Acid/Vitamin B Complex With C Cap PO SCH (18:04)
[2019-11-03] MEDS ORDERED: Losartan 50 MG Tab PO SCH (21:00)
[2019-11-04] MEDS ORDERED: hydrALAZINE 10 MG Tab PO ONE (00:16)
[2019-11-04 06:23] LABS: CARBON DIOXIDE,CO2 23.9 mmol/L (21.0-32.0); CHLORIDE,CL 104 mmol/L (98-107); GLUCOSE RANDOM 96 mg/dL (74-106); POTASSIUM,K 3.2 mmol/L (3.5-5.1); SODIUM,NA 141 mmol/L (136-145)
[2019-11-04 06:42] LABS: BLOOD UREA NITROGEN,BUN 11 mg/dL (7.0-18.0)
[2019-11-04] MEDS ORDERED: LORazepam 2 MG/ML SDV IVPUSH PRN (08:09)
[2019-11-04] MEDS ORDERED: Potassium Chloride 20 MEQ Tab.ER PO ONE ×2 (08:18→14:00)
[2019-11-04] MEDS: Losartan 50 MG Tab PO SCH ×2 (08:51→20:22)
[2019-11-04] MEDS: Chlorthalidone 25 MG Tab PO SCH (08:51)
[2019-11-04] MEDS: Folic Acid/Vitamin B Complex With C Cap PO SCH (09:17)
--- NOTE | 2019-11-04 09:48 | US ---
Renal ultrasound: Multiple real-time images of the kidneys were obtained. Comparison: No previous renal ultrasound, previous CT abdomen and pelvis exam of 09/09/19. Findings: Kidneys show no hydronephrosis or mass. Small echogenic areas are seen within the kidneys believed to represent artifact as no calcifications are noted on prior CT exam. Right kidney length is 10.1 cm and left kidney length is 11.6 cm. Bladder not well distended. No discrete intraluminal abnormality is appreciated within the bladder. Impression: 1. No abnormality is identified on renal ultrasound study. Diagnostic code #1 This report was dictated in [place] Standard Time
--- NOTE | 2019-11-04 11:27 | PCM.PN ---
- General Info Date of Service: 11/04/19 Subjective Update: No acute events overnight. SBP in 170's. Denies any headaches, chest pain. States she gets anxious when checking her blood pressure. - Patient Data Vitals - Most Recent: Last Vital Signs Temp 36.4 C 11/04/19 07:20 Pulse 56 L 11/04/19 08:48 Resp 16 11/04/19 07:20 BP 185/99 H 11/04/19 08:51 Pulse Ox 96 11/04/19 07:20 Weight - Most Recent: 66.134 kg I&O - Last 24 Hours: Intake & Output 11/03/19 11/04/19 11/04/19 22:59 06:59 14:59 Intake Total 2100 Output Total 2825 Balance -725 Lab Results Last 24 Hours: Laboratory Results - last 24 hr 11/03/19 11/03/19 11/03/19 Range/Units 13:57 13:57 13:57 WBC 8.59 (4.0-11.0) K/uL RBC 5.75 (4.30-5.90) M/uL Hgb 18.8 H (12.0-16.0) g/dL Hct 52.6 H (36.0-46.0) % MCV 91.5 (80.0-98.0) fL MCH 32.7 H (27.0-32.0) pg MCHC 35.7 (31.0-37.0) g/dL RDW Std Deviation 43.4 (28.0-62.0) fl RDW Coeff of Aneudy 13 (11.0-15.0) % Plt Count 257 (150-400) K/uL MPV 10.90 (7.40-12.00) fL Neut % (Auto) 64.2 (48.0-80.0) % Lymph % (Auto) 22.2 (16.0-40.0) % Brooks % (Auto) 11.1 (0.0-15.0) % Eos % (Auto) 2.0 (0.0-7.0) % Baso % (Auto) 0.5 (0.0-1.5) % Neut # (Auto) 5.5 (1.4-5.7) K/uL Lymph # (Auto) 1.9 (0.6-2.4) K/uL Brooks # (Auto) 1.0 H (0.0-0.8) K/uL Eos # (Auto) 0.2 (0.0-0.7) K/uL Baso # (Auto) 0.0 (0.0-0.1) K/uL Nucleated RBC % 0.0 /100WBC Nucleated RBCs # 0 K/uL Sodium 142 (136-145) mmol/L Potassium 3.4 L (3.5-5.1) mmol/L Chloride 105 (98-107) mmol/L Carbon Dioxide 26.2 (21.0-32.0) mmol/L BUN 17 (7.0-18.0) mg/dL Creatinine 0.7 (0.6-1.0) mg/dL Est Cr Clr Drug Dosing 81.71 mL/min Estimated GFR (MDRD) > 60.0 ml/min Glucose 102 (74-106) mg/dL Calcium 9.2 (8.5-10.1) mg/dL Magnesium (1.8-2.4) mg/dL Total Bilirubin 0.5 (0.2-1.0) mg/dL AST 22 (15-37) IU/L ALT 28 (14-63) IU/L Alkaline Phosphatase 67 (46-116) U/L Troponin I < 0.050 (0.000-0.056) ng/mL B-Natriuretic Peptide 149 H (<100) PG/ML Total Protein 7.7 (6.4-8.2) g/dL Albumin 4.3 (3.4-5.0) g/dL Globulin 3.4 (2.6-4.0) g/dL Albumin/Globulin Ratio 1.3 (0.9-1.6) TSH 3rd Generation (0.36-3.74) uIU/mL Urine Color Urine Appearance Urine pH (5.0-8.0) Ur Specific Morrison (1.001-1.035) Urine Protein (NEGATIVE) mg/dL Urine Glucose (UA) (NEGATIVE) mg/dL Urine Ketones (NEGATIVE) mg/dL Urine Occult Blood (NEGATIVE) Urine Nitrite (NEGATIVE) Urine Bilirubin (NEGATIVE) Urine Urobilinogen (<2.0) EU/dL Ur Leukocyte Esterase (NEGATIVE) Urine Opiates Screen (NEGATIVE) Ur Oxycodone Screen (NEGATIVE) Urine Methadone Screen (NEGATIVE) Ur Barbiturates Screen (NEGATIVE) Ur Phencyclidine Scrn (NEGATIVE) Ur Amphetamine Screen (NEGATIVE) U Methamphetamines Scrn (NEGATIVE) U Benzodiazepines Scrn (NEGATIVE) U Cocaine Metab Screen (NEGATIVE) U Marijuana (THC) Screen (NEGATIVE) Ethyl Alcohol mg/dL 11/03/19 11/03/19 11/03/19 Range/Units 13:57 13:57 13:57 WBC (4.0-11.0) K/uL RBC (4.30-5.90) M/uL Hgb (12.0-16.0) g/dL Hct (36.0-46.0) % MCV (80.0-98.0) fL MCH (27.0-32.0) pg MCHC (31.0-37.0) g/dL RDW Std Deviation (28.0-62.0) fl RDW Coeff of Aneudy (11.0-15.0) % Plt Count (150-400) K/uL MPV (7.40-12.00) fL Neut % (Auto) (48.0-80.0) % Lymph % (Auto) (16.0-40.0) % Brooks % (Auto) (0.0-15.0) % Eos % (Auto) (0.0-7.0) % Baso % (Auto) (0.0-1.5) % Neut # (Auto) (1.4-5.7) K/uL Lymph # (Auto) (0.6-2.4) K/uL Brooks # (Auto) (0.0-0.8) K/uL Eos # (Auto) (0.0-0.7) K/uL Baso # (Auto) (0.0-0.1) K/uL Nucleated RBC % /100WBC Nucleated RBCs # K/uL Sodium (136-145) mmol/L Potassium (3.5-5.1) mmol/L Chloride (98-107) mmol/L Carbon Dioxide (21.0-32.0) mmol/L BUN (7.0-18.0) mg/dL Creatinine (0.6-1.0) mg/dL Est Cr Clr Drug Dosing mL/min Estimated GFR (MDRD) ml/min Glucose (74-106) mg/dL Calcium (8.5-10.1) mg/dL Magnesium 1.8 (1.8-2.4) mg/dL Total Bilirubin (0.2-1.0) mg/dL AST (15-37) IU/L ALT (14-63) IU/L Alkaline Phosphatase (46-116) U/L Troponin I (0.000-0.056) ng/mL B-Natriuretic Peptide (<100) PG/ML Total Protein (6.4-8.2) g/dL Albumin (3.4-5.0) g/dL Globulin (2.6-4.0) g/dL Albumin/Globulin Ratio (0.9-1.6) TSH 3rd Generation 2.12 (0.36-3.74) uIU/mL Urine Color Urine Appearance Urine pH (5.0-8.0) Ur Specific Morrison (1.001-1.035) Urine Protein (NEGATIVE) mg/dL Urine Glucose (UA) (NEGATIVE) mg/dL Urine Ketones (NEGATIVE) mg/dL Urine Occult Blood (NEGATIVE) Urine Nitrite (NEGATIVE) Urine Bilirubin (NEGATIVE) Urine Urobilinogen (<2.0) EU/dL Ur Leukocyte Esterase (NEGATIVE) Urine Opiates Screen (NEGATIVE) Ur Oxycodone Screen (NEGATIVE) Urine Methadone Screen (NEGATIVE) Ur Barbiturates Screen (NEGATIVE) Ur Phencyclidine Scrn (NEGATIVE) Ur Amphetamine Screen (NEGATIVE) U Methamphetamines Scrn (NEGATIVE) U Benzodiazepines Scrn (NEGATIVE) U Cocaine Metab Screen (NEGATIVE) U Marijuana (THC) Screen (NEGATIVE) Ethyl Alcohol <3 mg/dL 11/04/19 11/04/19 11/04/19 Range/Units 05:40 05:40 10:55 WBC 8.52 (4.0-11.0) K/uL RBC 5.71 (4.30-5.90) M/uL Hgb 18.6 H (12.0-16.0) g/dL Hct 50.4 H (36.0-46.0) % MCV 88.3 (80.0-98.0) fL MCH 32.6 H (27.0-32.0) pg MCHC 36.9 (31.0-37.0) g/dL RDW Std Deviation 40.9 (28.0-62.0) fl RDW Coeff of Aneudy 13 (11.0-15.0) % Plt Count 254 (150-400) K/uL MPV 10.50 (7.40-12.00) fL Neut % (Auto) 63.2 (48.0-80.0) % Lymph % (Auto) 21.0 (16.0-40.0) % Brooks % (Auto) 13.4 (0.0-15.0) % Eos % (Auto) 1.9 (0.0-7.0) % Baso % (Auto) 0.5 (0.0-1.5) % Neut # (Auto) 5.4 (1.4-5.7) K/uL Lymph # (Auto) 1.8 (0.6-2.4) K/uL Brooks # (Auto) 1.1 H (0.0-0.8) K/uL Eos # (Auto) 0.2 (0.0-0.7) K/uL Baso # (Auto) 0.0 (0.0-0.1) K/uL Nucleated RBC % /100WBC Nucleated RBCs # K/uL Sodium 141 (136-145) mmol/L Potassium 3.2 L (3.5-5.1) mmol/L Chloride 104 (98-107) mmol/L Carbon Dioxide 23.9 (21.0-32.0) mmol/L BUN 11 (7.0-18.0) mg/dL Creatinine 0.6 (0.6-1.0) mg/dL Est Cr Clr Drug Dosing 91.48 mL/min Estimated GFR (MDRD) > 60.0 ml/min Glucose 96 (74-106) mg/dL Calcium 8.7 (8.5-10.1) mg/dL Magnesium (1.8-2.4) mg/dL Total Bilirubin 1.0 (0.2-1.0) mg/dL AST 18 (15-37) IU/L ALT 24 (14-63) IU/L Alkaline Phosphatase 62 (46-116) U/L Troponin I (0.000-0.056) ng/mL B-Natriuretic Peptide (<100) PG/ML Total Protein 7.0 (6.4-8.2) g/dL Albumin 4.0 (3.4-5.0) g/dL Globulin 3.0 (2.6-4.0) g/dL Albumin/Globulin Ratio 1.3 (0.9-1.6) TSH 3rd Generation (0.36-3.74) uIU/mL Urine Color YELLOW Urine Appearance CLEAR Urine pH 7.0 (5.0-8.0) Ur Specific Morrison <= 1.005 (1.001-1.035) Urine Protein NEGATIVE (NEGATIVE) mg/dL Urine Glucose (UA) NEGATIVE (NEGATIVE) mg/dL Urine Ketones NEGATIVE (NEGATIVE) mg/dL Urine Occult Blood TRACE-INTACT H (NEGATIVE) Urine Nitrite NEGATIVE (NEGATIVE) Urine Bilirubin NEGATIVE (NEGATIVE) Urine Urobilinogen 0.2 (<2.0) EU/dL Ur Leukocyte Esterase NEGATIVE (NEGATIVE) Urine Opiates Screen (NEGATIVE) Ur Oxycodone Screen (NEGATIVE) Urine Methadone Screen (NEGATIVE) Ur Barbiturates Screen (NEGATIVE) Ur Phencyclidine Scrn (NEGATIVE) Ur Amphetamine Screen (NEGATIVE) U Methamphetamines Scrn (NEGATIVE) U Benzodiazepines Scrn (NEGATIVE) U Cocaine Metab Screen (NEGATIVE) U Marijuana (THC) Screen (NEGATIVE) Ethyl Alcohol mg/dL 11/04/19 Range/Units 10:55 WBC (4.0-11.0) K/uL RBC (4.30-5.90) M/uL Hgb (12.0-16.0) g/dL Hct (36.0-46.0) % MCV (80.0-98.0) fL MCH (27.0-32.0) pg MCHC (31.0-37.0) g/dL RDW Std Deviation (28.0-62.0) fl RDW Coeff of Aneudy (11.0-15.0) % Plt Count (150-400) K/uL MPV (7.40-12.00) fL Neut % (Auto) (48.0-80.0) % Lymph % (Auto) (16.0-40.0) % Brooks % (Auto) (0.0-15.0) % Eos % (Auto) (0.0-7.0) % Baso % (Auto) (0.0-1.5) % Neut # (Auto) (1.4-5.7) K/uL Lymph # (Auto) (0.6-2.4) K/uL Brooks # (Auto) (0.0-0.8) K/uL Eos # (Auto) (0.0-0.7) K/uL Baso # (Auto) (0.0-0.1) K/uL Nucleated RBC % /100WBC Nucleated RBCs # K/uL Sodium (136-145) mmol/L Potassium (3.5-5.1) mmol/L Chloride (98-107) mmol/L Carbon Dioxide (21.0-32.0) mmol/L BUN (7.0-18.0) mg/dL Creatinine (0.6-1.0) mg/dL Est Cr Clr Drug Dosing mL/min Estimated GFR (MDRD) ml/min Glucose (74-106) mg/dL Calcium (8.5-10.1) mg/dL Magnesium (1.8-2.4) mg/dL Total Bilirubin (0.2-1.0) mg/dL AST (15-37) IU/L ALT (14-63) IU/L Alkaline Phosphatase (46-116) U/L Troponin I (0.000-0.056) ng/mL B-Natriuretic Peptide (<100) PG/ML Total Protein (6.4-8.2) g/dL Albumin (3.4-5.0) g/dL Globulin (2.6-4.0) g/dL Albumin/Globulin Ratio (0.9-1.6) TSH 3rd Generation (0.36-3.74) uIU/mL Urine Color Urine Appearance Urine pH (5.0-8.0) Ur Specific Morrison (1.001-1.035) Urine Protein (NEGATIVE) mg/dL Urine Glucose (UA) (NEGATIVE) mg/dL Urine Ketones (NEGATIVE) mg/dL Urine Occult Blood (NEGATIVE) Urine Nitrite (NEGATIVE) Urine Bilirubin (NEGATIVE) Urine Urobilinogen (<2.0) EU/dL Ur Leukocyte Esterase (NEGATIVE) Urine Opiates Screen NEGATIVE (NEGATIVE) Ur Oxycodone Screen NEGATIVE (NEGATIVE) Urine Methadone Screen NEGATIVE (NEGATIVE) Ur Barbiturates Screen NEGATIVE (NEGATIVE) Ur Phencyclidine Scrn NEGATIVE (NEGATIVE) Ur Amphetamine Screen NEGATIVE (NEGATIVE) U Methamphetamines Scrn NEGATIVE (NEGATIVE) U Benzodiazepines Scrn NEGATIVE (NEGATIVE) U Cocaine Metab Screen NEGATIVE (NEGATIVE) U Marijuana (THC) Screen NEGATIVE (NEGATIVE) Ethyl Alcohol mg/dL Med Orders - Current: Current Medications Acetaminophen (Tylenol) 650 mg PO Q4H PRN PRN Reason: Pain (Mild 1-3)/fever Chlorthalidone (Chlorthalidone) [address] [facility] Last Admin: 11/04/19 08:51 Dose: 25 mg Enoxaparin Sodium (Lovenox) [address] [facility] Last Admin: 11/03/19 17:42 Dose: 40 mg Ibuprofen (Motrin) 800 mg PO Q6H PRN PRN Reason: Pain (mild 1-3) Labetalol HCl (Normodyne) 10 mg IVPUSH Q4H PRN PRN Reason: Hypertension Lorazepam (Ativan) 0 mg IVPUSH Q4H PRN; Protocol PRN Reason: Withdrawal Symptoms Lorazepam (Ativan) 1 mg IVPUSH BID PRN PRN Reason: Anxiety Losartan Potassium (Cozaar) [address] [facility] Last Admin: 11/04/19 08:51 Dose: 50 mg Multivit/Ca Carb/B Cmplx/FA/Prenat (Renal Caps Softgel) [address] [facility] Last Admin: 11/04/19 09:17 Dose: 1 cap Ondansetron HCl (Zofran Odt) 4 mg PO Q4H PRN PRN Reason: nausea, able to take PO Ondansetron HCl (Zofran) 4 mg IVPUSH Q4H PRN PRN Reason: Nausea Potassium Chloride (Klor-Con M20) 40 meq PO ONETIME ONE Stop: 11/04/19 14:01 Discontinued Medications Acetaminophen (Tylenol Extra Strength) 500 mg PO ONETIME ONE Stop: 11/03/19 15:13 Last Admin: 11/03/19 15:30 Dose: Not Given Hydralazine HCl (Apresoline) 10 mg PO ONETIME ONE Stop: 11/04/19 00:17 Last Admin: 11/04/19 00:29 Dose: 10 mg Nicardipine HCl (Cardene 20 Mg In Ns 200 Ml) 20 mg in 200 mls @ 20 mls/hr IV TITRATE LENKA; Protocol Last Titration: 11/03/19 16:00 Dose: 4.5 mg/hr, 45 mls/hr Sodium Chloride (Normal Saline) 1,000 mls @ 150 mls/hr IV ASDIRECTED LENKA Stop: 11/03/19 23:54 Last Admin: 11/03/19 17:55 Dose: 150 mls/hr Lorazepam (Ativan) 1 mg IVPUSH ONETIME ONE Stop: 11/03/19 17:11 Last Admin: 11/03/19 17:42 Dose: 1 mg Losartan Potassium (Cozaar) 50 mg PO BEDTIME LENKA Last Admin: 11/03/19 20:14 Dose: 50 mg Metoprolol Tartrate (Lopressor) 50 mg PO NOW STA Stop: 11/03/19 17:34 Last Admin: 11/03/19 17:54 Dose: 50 mg Potassium Chloride (Klor-Con M20) 40 meq PO ONETIME ONE Stop: 11/03/19 17:17 Last Admin: 11/03/19 17:42 Dose: 40 meq Potassium Chloride (Klor-Con M20) 40 meq PO ONETIME ONE Stop: 11/04/19 08:19 Last Admin: 11/04/19 08:51 Dose: 40 meq - Exam General: Alert, Oriented, Cooperative, No Acute Distress HEENT: Pupils Equal, Pupils Reactive Lungs: Clear to Auscultation, Normal Respiratory Effort, Wheezing. No: Crackles Cardiovascular: Regular Rate, Regular Rhythm GI/Abdominal Exam: Normal Bowel Sounds, Soft, Non-Tender Extremities: Normal Inspection, Other (mild lower extremity edema) Skin: Warm, Dry Sepsis Event Note - Evaluation Sepsis Screening Result: No Definite Risk - Focused Exam Vital Signs: Vital Signs Temp Pulse Resp BP BP Pulse Ox 11/04/19 08:51 185/99 H 11/04/19 08:48 56 L 185/99 H 11/04/19 07:20 36.4 C 55 L 16 179/112 H 96 11/04/19 04:00 36.3 C 60 16 158/89 H 95 11/04/19 00:29 185/105 H 11/04/19 00:00 36.2 C 61 16 184/105 H 97 Date Exam was Performed: 11/04/19 Time Exam was Performed: 14:09 - Problem List Review Problem List Initiated/Reviewed/Updated: Yes - My Orders Last 24 Hours: My Active Orders 11/03/19 17:08 Intake and Output [RC] Q12H Oxygen Therapy [RC] PRN Up ad Kellee [RC] ASDIRECTED VTE/DVT Education [RC] PER UNIT ROUTINE Vital Signs [RC] Q4H Acetaminophen [Tylenol] 650 mg PO Q4H PRN Ibuprofen [Motrin] 800 mg PO Q6H PRN Ondansetron [Zofran ODT] 4 mg PO Q4H PRN Ondansetron [Zofran] 4 mg IVPUSH Q4H PRN Resuscitation Status Routine 11/03/19 17:11 LORazepam [Ativan] See Protocol IVPUSH Q4H PRN 11/03/19 17:15 CIWAA Assessment [RC] Q4H Enoxaparin [Lovenox] 40 mg SUBCUT Q24H Folic Acid/Vitamin B Comp W-C [Renal Caps Softgel] 1 cap PO DAILY 11/03/19 17:17 Telemetry Monitoring [Cardiac Monitoring] [RC] Q8H 11/03/19 17:34 Labetalol [Normodyne] 10 mg IVPUSH Q4H PRN 11/03/19 Dinner Regular Diet [DIET] 11/04/19 08:00 Echo Comp wo Cont [US] Routine 11/04/19 08:09 LORazepam [Ativan] 1 mg IVPUSH BID PRN 11/04/19 08:55 ALDOSTERONE/RENIN RATIO [REF] Routine 11/04/19 09:00 Chlorthalidone 25 mg PO DAILY Losartan [Cozaar] 50 mg PO BID 11/04/19 10:55 UA W/MICROSCOPIC [URIN] Routine 11/04/19 14:00 Potassium Chloride [Klor-Con M20] 40 meq PO ONETIME ONE 11/05/19 05:11 CBC WITH AUTO DIFF [HEME] AM COMPREHENSIVE METABOLIC PN,CMP [CHEM] AM 11/06/19 05:11 CBC WITH AUTO DIFF [HEME] AM COMPREHENSIVE METABOLIC PN,CMP [CHEM] AM - Plan Plan:: A: 1. Hypertension, uncontrolled 2. Alcohol abuse P: 1. Started Losartan 50 mg PO BID and Chlorthalidone 25 mg PO daily. Will monitor BP during the day and adjust meds as needed. Suspect SYLVAIN contributing to uncontrolled BP. Will need sleep study as outpatient. Continue CIWA assessments. Dispo; likely tomorrow.
[2019-11-04] MEDS: Enoxaparin 40 MG/0.4 ML Syringe SUBCUT SCH (18:03)
[2019-11-05 06:09] LABS: BLOOD UREA NITROGEN,BUN 13 mg/dL (7.0-18.0); CARBON DIOXIDE,CO2 22.1 mmol/L (21.0-32.0); CHLORIDE,CL 108 mmol/L (98-107); GLUCOSE RANDOM 98 mg/dL (74-106); POTASSIUM,K 3.3 mmol/L (3.5-5.1); SODIUM,NA 144 mmol/L (136-145)
[2019-11-05 07:48] VITALS: BP 162/107; PULSE 63
--- NOTE | 2019-11-05 07:52 | PCM.DCSUM1 ---
<Matt Fu - Last Filed: 11/05/19 11:06> Discharge Summary - Hospital Course Free Text/Narrative:: 54 y/o female with history of hypertension who presented to the ER complaining of high blood pressure. Found to have BP 210/110. Admitted for hypertensive urgency. Started on chlorthalidone and losartan. BP improved to 160/90. In addition, she was started on CIWA assessments due to alcohol history. She did not need Ativan. CIWA scores of 2. At time of discharge, patient was feeling better. She was prescribed chlorthalidone 25 mg PO daily and Losartan 100 mg PO daily. Follow-up with her PCP for further adjustments. She will need sleep study as outpatient. She was advised to abstain from alcohol and any mood altering substances. - Discharge Data Discharge Date: 11/05/19 Discharge Disposition: Home, Self-Care 01 Condition: Good - Referral to Home Health Primary Care Physician: Dez Zaldivar MD - Patient Instructions Diet: Heart Healthy Diet Activity: As Tolerated Notify Provider of: Fever, Swelling and Redness, Nausea and/or Vomiting - Discharge Plan Prescriptions/Med Rec: Chlorthalidone 25 mg PO DAILY 30 Days #30 tablet Losartan [Cozaar] 100 mg PO DAILY 30 Days #30 tab Home Medications: Home Meds Potassium Chloride 20 meq PO BEDTIME 06/27/17 [History] atorvaSTATin Calcium [Atorvastatin Calcium] 20 mg PO BEDTIME 06/27/17 [History] Chlorthalidone 25 mg PO DAILY 30 Days #30 tablet 11/05/19 [Rx] Losartan [Cozaar] 100 mg PO DAILY 30 Days #30 tab 11/05/19 [Rx] Patient Handouts: Losartan tablets, Hypertension, [id number], Atenolol; Chlorthalidone tablets Referrals: [facility] [Outside] Dez Zaldivar MD [Primary Care Provider] - 11/15/19 10:30 am - Discharge Summary/Plan Comment DC Time >30 min.: No - Patient Data Vitals - Most Recent: Last Vital Signs Temp 36.2 C 11/05/19 07:47 Pulse 63 11/05/19 07:47 Resp 16 11/05/19 07:47 BP 162/107 H 11/05/19 07:47 Pulse Ox 97 11/05/19 07:47 Weight - Most Recent: 66.134 kg I&O - Last 24 hours: Intake & Output 11/04/19 11/05/19 11/05/19 22:59 06:59 14:59 Intake Total 1500 1100 Output Total 1600 1200 Balance -100 -100 Lab Results - Last 24 hrs: Laboratory Results - last 24 hr 11/04/19 11/04/19 11/04/19 Range/Units 05:40 10:55 10:55 WBC (4.0-11.0) K/uL RBC (4.30-5.90) M/uL Hgb (12.0-16.0) g/dL Hct (36.0-46.0) % MCV (80.0-98.0) fL MCH (27.0-32.0) pg MCHC (31.0-37.0) g/dL RDW Std Deviation (28.0-62.0) fl RDW Coeff of Aneudy (11.0-15.0) % Plt Count (150-400) K/uL MPV (7.40-12.00) fL Neut % (Auto) (48.0-80.0) % Lymph % (Auto) (16.0-40.0) % [place] % (Auto) (0.0-15.0) % Eos % (Auto) (0.0-7.0) % Baso % (Auto) (0.0-1.5) % Neut # (Auto) (1.4-5.7) K/uL Lymph # (Auto) (0.6-2.4) K/uL Davidson # (Auto) (0.0-0.8) K/uL Eos # (Auto) (0.0-0.7) K/uL Baso # (Auto) (0.0-0.1) K/uL Nucleated RBC % /100WBC Nucleated RBCs # K/uL Sodium (136-145) mmol/L Potassium (3.5-5.1) mmol/L Chloride (98-107) mmol/L Carbon Dioxide (21.0-32.0) mmol/L BUN (7.0-18.0) mg/dL Creatinine (0.6-1.0) mg/dL Est Cr Clr Drug Dosing mL/min Estimated GFR (MDRD) ml/min Glucose (74-106) mg/dL Calcium (8.5-10.1) mg/dL Magnesium 1.8 (1.8-2.4) mg/dL Total Bilirubin (0.2-1.0) mg/dL AST (15-37) IU/L ALT (14-63) IU/L Alkaline Phosphatase (46-116) U/L Total Protein (6.4-8.2) g/dL Albumin (3.4-5.0) g/dL Globulin (2.6-4.0) g/dL Albumin/Globulin Ratio (0.9-1.6) Urine Color YELLOW Urine Appearance CLEAR Urine pH 7.0 (5.0-8.0) Ur Specific [place] <= 1.005 (1.001-1.035) Urine Protein NEGATIVE (NEGATIVE) mg/dL Urine Glucose (UA) NEGATIVE (NEGATIVE) mg/dL Urine Ketones NEGATIVE (NEGATIVE) mg/dL Urine Occult Blood TRACE-INTACT H (NEGATIVE) Urine Nitrite NEGATIVE (NEGATIVE) Urine Bilirubin NEGATIVE (NEGATIVE) Urine Urobilinogen 0.2 (<2.0) EU/dL Ur Leukocyte Esterase NEGATIVE (NEGATIVE) Urine RBC 0-2 (0-2/HPF) Urine WBC NONE SEEN (0-5/HPF) Ur Epithelial Cells OCCASIONAL (NONE-FEW) Urine Bacteria NOT SEEN (NEGATIVE) Urine Opiates Screen NEGATIVE (NEGATIVE) Ur Oxycodone Screen NEGATIVE (NEGATIVE) Urine Methadone Screen NEGATIVE (NEGATIVE) Ur Barbiturates Screen NEGATIVE (NEGATIVE) Ur Phencyclidine Scrn NEGATIVE (NEGATIVE) Ur Amphetamine Screen NEGATIVE (NEGATIVE) U Methamphetamines Scrn NEGATIVE (NEGATIVE) U Benzodiazepines Scrn NEGATIVE (NEGATIVE) U Cocaine Metab Screen NEGATIVE (NEGATIVE) U Marijuana (THC) Screen NEGATIVE (NEGATIVE) 11/05/19 11/05/19 Range/Units 05:13 05:13 WBC 6.11 (4.0-11.0) K/uL RBC 5.75 (4.30-5.90) M/uL Hgb 18.7 H (12.0-16.0) g/dL Hct 52.4 H (36.0-46.0) % MCV 91.1 (80.0-98.0) fL MCH 32.5 H (27.0-32.0) pg MCHC 35.7 (31.0-37.0) g/dL RDW Std Deviation 43.0 (28.0-62.0) fl RDW Coeff of Aneudy 13 (11.0-15.0) % Plt Count 243 (150-400) K/uL MPV 10.90 (7.40-12.00) fL Neut % (Auto) 55.4 (48.0-80.0) % Lymph % (Auto) 29.0 (16.0-40.0) % Davidson % (Auto) 12.8 (0.0-15.0) % Eos % (Auto) 2.0 (0.0-7.0) % Baso % (Auto) 0.8 (0.0-1.5) % Neut # (Auto) 3.4 (1.4-5.7) K/uL Lymph # (Auto) 1.8 (0.6-2.4) K/uL Davidson # (Auto) 0.8 (0.0-0.8) K/uL Eos # (Auto) 0.1 (0.0-0.7) K/uL Baso # (Auto) 0.1 (0.0-0.1) K/uL Nucleated RBC % 0.0 /100WBC Nucleated RBCs # 0 K/uL Sodium 144 (136-145) mmol/L Potassium 3.3 L (3.5-5.1) mmol/L Chloride 108 H (98-107) mmol/L Carbon Dioxide 22.1 (21.0-32.0) mmol/L BUN 13 (7.0-18.0) mg/dL Creatinine 0.7 (0.6-1.0) mg/dL Est Cr Clr Drug Dosing 78.41 mL/min Estimated GFR (MDRD) > 60.0 ml/min Glucose 98 (74-106) mg/dL Calcium 9.0 (8.5-10.1) mg/dL Magnesium (1.8-2.4) mg/dL Total Bilirubin 0.8 (0.2-1.0) mg/dL AST 19 (15-37) IU/L ALT 29 (14-63) IU/L Alkaline Phosphatase 62 (46-116) U/L Total Protein 7.1 (6.4-8.2) g/dL Albumin 4.0 (3.4-5.0) g/dL Globulin 3.1 (2.6-4.0) g/dL Albumin/Globulin Ratio 1.3 (0.9-1.6) Urine Color Urine Appearance Urine pH (5.0-8.0) Ur Specific [place] (1.001-1.035) Urine Protein (NEGATIVE) mg/dL Urine Glucose (UA) (NEGATIVE) mg/dL Urine Ketones (NEGATIVE) mg/dL Urine Occult Blood (NEGATIVE) Urine Nitrite (NEGATIVE) Urine Bilirubin (NEGATIVE) Urine Urobilinogen (<2.0) EU/dL Ur Leukocyte Esterase (NEGATIVE) Urine RBC (0-2/HPF) Urine WBC (0-5/HPF) Ur Epithelial Cells (NONE-FEW) Urine Bacteria (NEGATIVE) Urine Opiates Screen (NEGATIVE) Ur Oxycodone Screen (NEGATIVE) Urine Methadone Screen (NEGATIVE) Ur Barbiturates Screen (NEGATIVE) Ur Phencyclidine Scrn (NEGATIVE) Ur Amphetamine Screen (NEGATIVE) U Methamphetamines Scrn (NEGATIVE) U Benzodiazepines Scrn (NEGATIVE) U Cocaine Metab Screen (NEGATIVE) U Marijuana (THC) Screen (NEGATIVE) Med Orders - Current: Current Medications Acetaminophen (Tylenol) 650 mg PO Q4H PRN PRN Reason: Pain (Mild 1-3)/fever Chlorthalidone (Chlorthalidone) 25 mg PO DAILY [facility] Last Admin: 11/04/19 08:51 Dose: 25 mg Enoxaparin Sodium (Lovenox) 40 mg SUBCUT Q24H [facility] Last Admin: 11/04/19 18:03 Dose: 40 mg Ibuprofen (Motrin) 800 mg PO Q6H PRN PRN Reason: Pain (mild 1-3) Labetalol HCl (Normodyne) 10 mg IVPUSH Q4H PRN PRN Reason: Hypertension Lorazepam (Ativan) 0 mg IVPUSH Q4H PRN; Protocol PRN Reason: Withdrawal Symptoms Lorazepam (Ativan) 1 mg IVPUSH BID PRN PRN Reason: Anxiety Losartan Potassium (Cozaar) 50 mg PO BID [facility] Last Admin: 11/04/19 20:22 Dose: 50 mg Multivit/Ca Carb/B Cmplx/FA/Prenat (Renal Caps Softgel) 1 cap PO DAILY [facility] Last Admin: 11/04/19 09:17 Dose: 1 cap Ondansetron HCl (Zofran Odt) 4 mg PO Q4H PRN PRN Reason: nausea, able to take PO Ondansetron HCl (Zofran) 4 mg IVPUSH Q4H PRN PRN Reason: Nausea Potassium Chloride (Klor-Con M20) 40 meq PO Q4H LENKA Stop: 11/05/19 12:01 Discontinued Medications Acetaminophen (Tylenol Extra Strength) 500 mg PO ONETIME ONE Stop: 11/03/19 15:13 Last Admin: 11/03/19 15:30 Dose: Not Given Hydralazine HCl (Apresoline) 10 mg PO ONETIME ONE Stop: 11/04/19 00:17 Last Admin: 11/04/19 00:29 Dose: 10 mg Nicardipine HCl (Cardene 20 Mg In Ns 200 Ml) 20 mg in 200 mls @ 20 mls/hr IV TITRATE LENKA; Protocol Last Titration: 11/03/19 16:00 Dose: 4.5 mg/hr, 45 mls/hr Sodium Chloride (Normal Saline) 1,000 mls @ 150 mls/hr IV ASDIRECTED LENKA Stop: 11/03/19 23:54 Last Admin: 11/03/19 17:55 Dose: 150 mls/hr Lorazepam (Ativan) 1 mg IVPUSH ONETIME ONE Stop: 11/03/19 17:11 Last Admin: 11/03/19 17:42 Dose: 1 mg Losartan Potassium (Cozaar) 50 mg PO BEDTIME LENKA Last Admin: 11/03/19 20:14 Dose: 50 mg Metoprolol Tartrate (Lopressor) 50 mg PO NOW STA Stop: 11/03/19 17:34 Last Admin: 11/03/19 17:54 Dose: 50 mg Potassium Chloride (Klor-Con M20) 40 meq PO ONETIME ONE Stop: 11/03/19 17:17 Last Admin: 11/03/19 17:42 Dose: 40 meq Potassium Chloride (Klor-Con M20) 40 meq PO ONETIME ONE Stop: 11/04/19 08:19 Last Admin: 11/04/19 08:51 Dose: 40 meq Potassium Chloride (Klor-Con M20) 40 meq PO ONETIME ONE Stop: 11/04/19 14:01 Last Admin: 11/04/19 14:23 Dose: 40 meq <Oziel Menendez J - Last Filed: 11/07/19 10:18> Discharge Summary - Referral to Home Health Primary Care Physician: Dez Zaldivar MD - Patient Data Vitals - Most Recent: Last Vital Signs Temp 36.2 C 11/05/19 07:47 Pulse 63 11/05/19 07:47 Resp 16 11/05/19 07:47 BP 162/107 H 11/05/19 08:14 Pulse Ox 97 11/05/19 07:47 Med Orders - Current: Current Medications Discontinued Medications Acetaminophen (Tylenol Extra Strength) 500 mg PO ONETIME ONE Stop: 11/03/19 15:13 Last Admin: 11/03/19 15:30 Dose: Not Given Acetaminophen (Tylenol) 650 mg PO Q4H PRN PRN Reason: Pain (Mild 1-3)/fever Chlorthalidone (Chlorthalidone) 25 mg PO DAILY LENKA Last Admin: 11/05/19 08:15 Dose: 25 mg Enoxaparin Sodium (Lovenox) 40 mg SUBCUT Q24H LENKA Last Admin: 11/04/19 18:03 Dose: 40 mg Hydralazine HCl (Apresoline) 10 mg PO ONETIME ONE Stop: 11/04/19 00:17 Last Admin: 11/04/19 00:29 Dose: 10 mg Nicardipine HCl (Cardene 20 Mg In Ns 200 Ml) 20 mg in 200 mls @ 20 mls/hr IV TITRATE LENKA; Protocol Last Titration: 11/03/19 16:00 Dose: 4.5 mg/hr, 45 mls/hr Sodium Chloride (Normal Saline) 1,000 mls @ 150 mls/hr IV ASDIRECTED LENKA Stop: 11/03/19 23:54 Last Admin: 11/03/19 17:55 Dose: 150 mls/hr Ibuprofen (Motrin) 800 mg PO Q6H PRN PRN Reason: Pain (mild 1-3) Labetalol HCl (Normodyne) 10 mg IVPUSH Q4H PRN PRN Reason: Hypertension Lorazepam (Ativan) 1 mg IVPUSH ONETIME ONE Stop: 11/03/19 17:11 Last Admin: 11/03/19 17:42 Dose: 1 mg Lorazepam (Ativan) 0 mg IVPUSH Q4H PRN; Protocol PRN Reason: Withdrawal Symptoms Lorazepam (Ativan) 1 mg IVPUSH BID PRN PRN Reason: Anxiety Losartan Potassium (Cozaar) 50 mg PO BEDTIME [facility] Last Admin: 11/03/19 20:14 Dose: 50 mg Losartan Potassium (Cozaar) 50 mg PO BID [facility] Last Admin: 11/05/19 08:14 Dose: 50 mg Metoprolol Tartrate (Lopressor) 50 mg PO NOW STA Stop: 11/03/19 17:34 Last Admin: 11/03/19 17:54 Dose: 50 mg Multivit/Ca Carb/B Cmplx/FA/Prenat (Renal Caps Softgel) 1 cap PO DAILY [facility] Last Admin: 11/05/19 08:14 Dose: 1 cap Ondansetron HCl (Zofran Odt) 4 mg PO Q4H PRN PRN Reason: nausea, able to take PO Ondansetron HCl (Zofran) 4 mg IVPUSH Q4H PRN PRN Reason: Nausea Potassium Chloride (Klor-Con M20) 40 meq PO ONETIME ONE Stop: 11/03/19 17:17 Last Admin: 11/03/19 17:42 Dose: 40 meq Potassium Chloride (Klor-Con M20) 40 meq PO ONETIME ONE Stop: 11/04/19 08:19 Last Admin: 11/04/19 08:51 Dose: 40 meq Potassium Chloride (Klor-Con M20) 40 meq PO ONETIME ONE Stop: 11/04/19 14:01 Last Admin: 11/04/19 14:23 Dose: 40 meq Potassium Chloride (Klor-Con M20) 40 meq PO Q4H LENKA Stop: 11/05/19 12:01 Last Admin: 11/05/19 11:32 Dose: 40 meq - Free Text/Narrative Note: I have seen and evaluated the patient with the resident. I have discussed the findings and treatment plan with the resident. I agree with the assessment and plan as outlined in the following note.
[2019-11-05] MEDS: Losartan 50 MG Tab PO SCH (08:14)
[2019-11-05] MEDS: Folic Acid/Vitamin B Complex With C Cap PO SCH (08:14)
[2019-11-05] MEDS: Potassium Chloride 20 MEQ Tab.ER PO SCH ×2 (08:15→11:32)
[2019-11-05] MEDS: Chlorthalidone 25 MG Tab PO SCH (08:15)
--- NOTE | 2019-11-06 17:07 | ECHO ---
EXAM DATE: 11/03/19 PATIENT'S AGE: 54 The echocardiogram report can be seen in this patient's EMR (Electronic Medical Record) in the REPORTS section. The report has also been scanned into PACs. NATALIYA
== END 2019-11-05 13:00 | disposition home or self-care (01) ==
LOC: MW.ED 12:59 → MW.MS 16:44
PROVIDERS: ADMIT Student in an Organized Health Care Education/Training Program; ATTEND Internal Medicine
DX: I16.0 Hypertensive urgency (principal); I10 Essential (primary) hypertension; E78.00 Pure hypercholesterolemia, unspecified; F10.239 Alcohol dependence with withdrawal, unspecified; Y90.0 Blood alcohol level of less than 20 mg/100 ml; Z87.891 Personal history of nicotine dependence; Z79.899 Other long term (current) drug therapy
CPT/HCPCS: 36415; 70450; 71045; 76770; 80053; 80305; 80307; 81001; 82088; 83735; 83880; 84244; 84443; 84484; 85025; 93005; 93306; 96361; 96365; 96375; 99285; A9270; J1650; J2060; J7030; J3490